=== PATIENT | male | born 1975 | race African-American/Black ===

== ENCOUNTER → 2025-01-17 11:16 | Outpatient (REF) | payer OTHER, SELFPAY ==
[2025-01-17 13:25] LABS: Hepatitis B Surface Antibody Negative
[2025-01-17 17:22] LABS: Rubella Positive
[2025-01-19 14:55] LABS: Quantiferon Mitogen minus NIL 9.88 IU/mL; Quantiferon NIL 0.12 IU/mL; Quantiferon Plus TB2 minus NIL 0.02 IU/mL (<=0.34); Quantiferon TB Gold Plus Negative (Negative)
== END ==
LOC: OHS 11:16
PROVIDERS: ATTENDING PHYSICIAN Nurse Practitioner Family
DX: Z23 Encounter for immunization (principal)
CPT/HCPCS: 36415; 86480; 86706; 86735; 86762; 86765; 86787